=== PATIENT | male | born 1985 | race Caucasian/White ===

== ENCOUNTER 2017-02-12 18:05 | Emergency (ER) | payer MEDICAID ==
[2017-02-12 18:10] VITALS: BP 118/76; PULSE 111; RESP 18; TEMP 97.3; O2SAT 97
--- NOTE | 2017-02-12 18:35 | EDPHY ---
H & P Stated Complaint: stepped on thorn on r foot yesterd, lots of pain, also thorns in both hands Time Seen by Provider: 02/12/17 18:30 HPI/ROS: Chief Complaint: Right foot pain HPI: 31-year-old male states he was gardening yesterday when he stepped on a foreign with his right barefoot. States is about 2 cm long. He pulled thorn out at that time but today's had worsening pain when he walks. When he pulled out thinks he got the whole for out. Denies any prior injuries. Does have pain with weight-bearing. ROS: 10 point Review of Systems is negative except as noted in the HPI. PMH: None Medications: None Allergies: No known drug allergies Social History: No smoking, occasional alcohol, no recreational drug use Family History: non-contributory Physical Exam: Gen: Awake, Alert, No Distress Ext: no edema, right foot there is a puncture wound just proximal and lateral to the right 5th toe on the plantar aspect of his foot. There is mild surrounding erythema. There is no discharge. There is tenderness to the site. There is no streaking up his foot. He has 2+ DP and PT pulses. Capillary refills less than 2 seconds. It is not warm to the touch. Skin: no rash Neuro: CN II-XII intact, Sensation grossly intact, Strength 5/5 in bilateral upper and lower extremities - Personal History Current Tetanus Diphtheria and Acellular Pertussis (TDAP): Yes Tetanus Vaccine Date: 2015 - Medical/Surgical History Hx Asthma: No Hx Chronic Respiratory Disease: No Hx Diabetes: No Hx Cardiac Disease: No Hx Renal Disease: No Hx Cirrhosis: No Hx Alcoholism: No Hx HIV/AIDS: No Hx Splenectomy or Spleen Trauma: No Other PMH: denies - Social History Smoking Status: Current every day smoker Constitutional: Initial Vital Signs Temperature (C) 36.3 C 02/12/17 18:08 Heart Rate 111 H 02/12/17 18:08 Respiratory Rate 18 02/12/17 18:08 Blood Pressure 118/76 02/12/17 18:08 O2 Sat (%) 97 02/12/17 18:08 O2 Delivery Mode Room Air Allergies/Adverse Reactions: No Known Allergies Allergy (Unverified 02/12/17 18:07) Home Medications: Medication Instructions Recorded Cephalexin [Keflex (*)] 500 mg PO Q6H #28 cap 02/12/17 Hydrocodone/Acetaminophen 1 - 2 each PO Q4-6PRN PRN #10 02/12/17 [Hydrocodon-Acetaminophen 5-325] tablet Medical Decision Making - Diagnostics Imaging Results: Imaging Impressions Foot X-Ray 02/12/17 18:34 Impression: No radiopaque foreign body seen lateral right foot although there is lateral soft tissue swelling. Imaging: I viewed and interpreted images myself ED Course/Re-evaluation: Patient with erythema a on his foot after stepping on a thorn yesterday. I received any radiopaque foreign body on the x-ray. The erythema could be either localized reaction or early infection. Will start Keflex. Refer for follow-up as an outpatient. Return for worsening. Departure - Departure Disposition: Home, Routine, Self-Care Clinical Impression: Puncture wound of foot Condition: Good Instructions: Puncture Wound (ED) Additional Instructions: Take her full course of antibiotics. Soak in warm soapy water 4 times a day. Follow up with Podiatry, Dr. Villalobos in 2-3 days. Return emergency depart for increasing redness, streaking up your foot, fevers, chills, or any other concerns. Referrals: NONE *PRIMARY CARE P,. [Primary Care Provider] - As per Instructions Power Villalobos DPM [Doctor of Podiatric Medicine] - As per Instructions Prescriptions: Cephalexin [Keflex (*)] 500 mg PO Q6H #28 cap Hydrocodone/Acetaminophen [Hydrocodon-Acetaminophen 5-325] 1 - 2 each PO Q4- 6PRN PRN #10 tablet PRN Reason: Pain, Severe
== END 2017-02-12 19:22 | disposition home or self-care (01) ==
LOC: CED 18:05
DX: S91.331A Puncture wound without foreign body, right foot, initial encounter (principal); F17.200 Nicotine dependence, unspecified, uncomplicated; W45.8XXA Other foreign body or object entering through skin, initial encounter
CPT/HCPCS: 73620-PO